=== PATIENT | female | born 1985 | race Caucasian/White ===

== ENCOUNTER 2016-08-02 09:10 | Emergency (ER) | payer OTHER ==
[2016-08-02 09:20] VITALS: O2SAT 97
[2016-08-02] MEDS ORDERED: Sodium Chloride 0.9% 1,000 ML IV ONE (09:50)
[2016-08-02] MEDS ORDERED: Sodium Chloride 0.9% 1,000 ML ONE (10:09)
[2016-08-02 10:24] LABS: BASO % 0.4 % (0.0-2.0); EOS # 0.3 K/uL (0.0-0.7); EOS % 3.6 % (0.0-4.0); HEMATOCRIT 44.1 % (34.0-47.0); LYMPH # 1.5 K/uL (1.0-4.3); LYMPH % 18.6 % (20.0-40.0); MEAN CELL VOLUME 93.3 fL (81.0-99.0); MEAN CORPUSCULAR HEMOGLOBIN 30.8 pg (27.0-31.0); MEAN PLATELET VOLUME 9.2 fL (7.2-11.7); MONO # 0.6 K/uL (0.0-0.8); MONO % 7.8 % (0.0-10.0); RED CELL DISTRIBUTION WIDTH 12.9 % (11.5-14.5); WHITE BLOOD COUNT 7.8 K/uL (4.8-10.8)
[2016-08-02 10:37] LABS: CHLORIDE 104 mmol/L (98-107)
[2016-08-02 10:38] LABS: POTASSIUM 4.2 mmol/L (3.6-5.2); SODIUM 143 mmol/L (132-148)
[2016-08-02 10:40] LABS: ALB/GLOB RATIO 1.3 (1.0-2.1); ALKALINE PHOSPHATASE 42 U/L (38-126); AST/SGOT 31 U/L (14-36); BILIRUBIN,TOTAL < 0.1 mg/dL (0.2-1.3); CARBON DIOXIDE 26 mmol/L (22-30); GFR AFRICAN-AMERICAN > 60; TOTAL PROTEIN 6.7 g/dL (6.3-8.3)
[2016-08-02 10:41] LABS: ALCOHOL SERUM < 10 mg/dl (0-10); ALT/SGPT 30 U/L (9-52); BLOOD UREA NITROGEN 9 mg/dL (7-17); CALCIUM 8.2 mg/dl (8.6-10.4); GLUCOSE,RANDOM 82 mg/dL (65-105)
[2016-08-02 10:46] LABS: RBC URINE 3 /hpf (0-3); URINE BACTERIA RARE (<OCC); URINE BILIRUBIN NEGATIVE (NEGATIVE); URINE BLOOD NEGATIVE (NEGATIVE); URINE COLOR Yellow (YELLOW); URINE GLUCOSE (UA) NORMAL (Normal); URINE KETONE NEGATIVE (NEGATIVE); URINE LEUKOCYTE ESTERASE TRACE Leu/uL (Negative); URINE PROTEIN NEGATIVE (NEGATIVE); URINE UROBILINOGEN NORMAL mg/dL (0.2-1.0); WBC URINE 4 /hpf (0-5)
--- NOTE | 2016-08-02 10:49 | C.PDOC ---
History Of Present Illness The patient, a 31 y/o female whose PMHx includes Anxiety and ADHD, presents to the ED for evaluation an epigastric burning sensation and dry hiving which began around 1 week ago. Patient admits to drinking yesterday, had [place] food and states she woke up this morning with worsening of epigastric abdominal pain and had 2 episodes of vomiting, which consisted of speckles of bright red blood. At presents time, patient is asymptomatic. Pt denies fever, chills, headache, dizziness, sore throat, CP, SOB, dyspnea, diaphoresis, palpitation, diarrhea, melena, hematoschezia, back pain, UTI sx. Ambulate to ED for evaluation, not in nay apparent distress. Time Seen by Provider: 08/02/16 09:20 Chief Complaint (Nursing): GI Problem History Per: Patient History/Exam Limitations: no limitations Onset/Duration Of Symptoms: Days Current Symptoms Are (Timing): Better Location Of Pain/Discomfort: Epigastric Radiation Of Pain To:: None Quality Of Discomfort: "Pain" Associated Symptoms: Vomiting. denies: Fever, Chills, Nausea, Diarrhea, Back Pain Exacerbating Factors: Other (alcohol ) Alleviating Factors: None Last Bowel Movement: Today Recent travel outside of the [place]: No Additional History Per: Patient Abnormal Vaginal Bleeding: No Past Medical History Reviewed: Historical Data, Nursing Documentation, Vital Signs Vital Signs: Last Vital Signs Temp 98.2 F 08/02/16 09:18 Pulse 101 H 08/02/16 09:18 Resp 18 08/02/16 09:18 BP 112/80 08/02/16 09:18 Pulse Ox 97 08/02/16 11:22 - Medical History PMH: Asthma, Depression Denies: Diabetes, Hepatitis, HIV, HTN, Seizures, Sexually Transmitted Disease Surgical History: No Surg Hx - [facility] Procedures TETANUS TOXOID ADMINIST (12/02/14) Family History: States: Unknown Family Hx - Social History Hx Tobacco Use: No Hx Alcohol Use: Yes Hx Substance Use: No - Immunization History Hx Tetanus Toxoid Vaccination: No Hx Influenza Vaccination: No Hx Pneumococcal Vaccination: No Review Of Systems Except As Marked, All Systems Reviewed And Found Negative. Constitutional: Negative for: Fever, Chills Cardiovascular: Negative for: Chest Pain Gastrointestinal: Positive for: Vomiting, Abdominal Pain (epigastric ). Negative for: Nausea, Diarrhea, Constipation Genitourinary: Negative for: Dysuria, Hematuria Musculoskeletal: Negative for: Back Pain Neurological: Negative for: Weakness, Numbness Physical Exam - Physical Exam Appears: Well, Non-toxic, No Acute Distress Skin: Normal Color, Warm, Dry, No Rash Head: Atraumatic, Normacephalic Eye(s): bilateral: Normal Inspection Ear(s): Bilateral: Normal Nose: Normal Oral Mucosa: Moist Throat: Normal, No Erythema, No Exudate, No Drooling Neck: Normal, Normal ROM, Supple Chest: Symmetrical, No Deformity, No Tenderness Cardiovascular: Rhythm Regular, No Murmur Respiratory: Normal Breath Sounds, No Rales, No Rhonchi, No Wheezing Gastrointestinal/Abdominal: Normal Exam, Soft, No Tenderness, No Organomegaly, No Distention, No Guarding, No Rebound Back: Normal Inspection, No CVA Tenderness Extremity: Normal ROM, No Pedal Edema, No Swelling Neurological/Psych: Oriented x3, Normal Speech, Normal Cognition ED Course And Treatment - Laboratory Results Result Diagrams: 08/02/16 10:12 08/02/16 10:12 Lab Interpretation: Normal Urine POC: Negative O2 Sat by Pulse Oximetry: 97 (on RA) Pulse Ox Interpretation: Normal Progress Note: Labs ordered and reviewed. Patient received Pepcid IV, Protonix IV, Zofran IV, and IV Fluids. Pt was OBS in ED for 2.5 hours and reamined stable. Pt reports, asymptomatic, denies any active complaints. Afebrile, hemodynamicaly stable. Non-toxic. Neck: (-) meningeal sign. Lungs: CTA B/L, BS equal B/L. Abd: benign, (-) guarding, (-) rebound, (-) localized tenderness. Back: (-) CVA tenderness. Diagnostics review and appears without acute abnormalities. PO given, pt tolerated well, no vomiting in ED. Results review and discussed with pt. Pt has clinical findings c/w epigastric pain, vomiting, alcohol use. Pt advised. ref. to F/u with PMD, GI on 2-3 days for re -eval. Return to ED if any worsening or new changes. Disposition - Disposition Referrals: [facility] [Outside] Disposition Time: 11:20 Condition: STABLE Additional Instructions: Diet restriction for 1-2 days Take medication as need Follow up with PMD, GI in 2-3 days for re-evaluation. Return to ED if any worsening or new changes. 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 - Scribe Statement The provider has reviewed the documentation as recorded by the Scribe (Paloma Moreno) All medical record entries made by the Scribe were at my direction and personally dictated by me. I have reviewed the chart and agree that the record accurately reflects my personal performance of the history, physical exam, medical decision making, and the department course for this patient. I have also personally directed, reviewed, and agree with the discharge instructions and disposition.
[2016-08-02 12:11] VITALS: BP 100/65; PULSE 75; RESP 17; TEMP 98.3
== END 2016-08-02 12:14 | disposition home or self-care (01) ==
LOC: C.ER 09:10
DX: R10.13 Epigastric pain (principal); R11.10 Vomiting, unspecified
CPT/HCPCS: 80053; 80320; 80324; 80345; 80346; 80349; 80353; 80358; 80361; 81001; 83690; 83992; 84703; 85025; 85610; 85730; 96374; 96375; 99285; C9113; J2405; J7040

== ENCOUNTER 2016-12-26 17:31 | Emergency (ER) | payer SELFPAY ==
[2016-12-26 17:51] VITALS: TEMP 98.3
--- NOTE | 2016-12-26 18:02 | C.PDOC ---
History Of Present Illness 31 yo female come in for evaluation of Right knee pain developed since yesterday after sustained mechanical fall " landed onto my knees".Pt sts, today developed moderate localized pain over back of Right knee mostly with ambulation and knee bending. Otherwise, pt denies head injury, LOC, neck pain, denies deformity, skin changes, swelling, weakness, sensory or vascular deficits to Right leg. Ambulate to Ed for evaluation, not in any apparent distress. Time Seen by Provider: 12/26/16 18:02 Chief Complaint (Nursing): Lower Extremity Problem/Injury History Per: Patient Onset/Duration Of Symptoms: Gradual Past Medical History Reviewed: Historical Data, Nursing Documentation, Vital Signs Vital Signs: Last Vital Signs Temp 98.3 F 12/26/16 17:47 Pulse 99 H 12/26/16 17:47 Resp 16 12/26/16 17:47 BP 108/72 12/26/16 17:47 Pulse Ox 99 12/26/16 18:02 - Medical History PMH: Asthma, Depression Denies: Diabetes, Hepatitis, HIV, HTN, Seizures, Sexually Transmitted Disease Surgical History: No Surg Hx - [facility] Procedures TETANUS TOXOID ADMINIST (12/02/14) Family History: States: No Known Family Hx - Social History Hx Tobacco Use: No Hx Alcohol Use: Yes Hx Substance Use: No - Immunization History Hx Tetanus Toxoid Vaccination: Yes Hx Influenza Vaccination: No Hx Pneumococcal Vaccination: No Review Of Systems Except As Marked, All Systems Reviewed And Found Negative. Eyes: Negative for: Vision Change ENT: Negative for: Ear Discharge, Nose Discharge Cardiovascular: Negative for: Chest Pain Gastrointestinal: Negative for: Nausea, Vomiting Genitourinary: Negative for: Incontinence Musculoskeletal: Positive for: Other (Right knee pain) Skin: Negative for: Bruising Neurological: Negative for: Weakness, Numbness, Altered Mental Status, Dizziness Physical Exam - Physical Exam Appears: Well, Non-toxic, No Acute Distress Skin: Normal Color, Warm, No Ecchymosis Head: Atraumatic, Normacephalic Neck: No Midline Cervical Tenderness, No Paracervical Tenderness, No Step Off Deformity, Supple Back: Normal Inspection, No Vertebral Tenderness, No Paraspinal Tenderness Extremity: Normal ROM (Right knee), Tenderness (mild tenderness over posterior aspect Right knee. NO palpable deformity, no ecchymoses, no edema, no erythema.) , No Calf Tenderness, Capillary Refill (less than 2sec to Right foot), No Deformity, No Swelling Neurological/Psych: Oriented x3, Normal Speech, Normal Motor, Normal Sensation, Normal Reflexes ED Course And Treatment O2 Sat by Pulse Oximetry: 99 - Other Rad Right knee X-Ray: Interpreted by Me, Viewed By Me Interpretation: (-) acute fx or dislocation Progress Note: On re-evaluation, pt is afebrile, hemodynamicaly stable. Non- toxic. Ambulatory in ED with stable gait. Right knee: exam c/w knee contusion. FAROM, no neurovascular deficits. Xray (-) acute fx or dislocation. Mike wrap applied to Right knee. Pt advised. ref. to f/u with Ortho in 2-3 days for re-eval. return to ED if any worsening or new changes. Disposition Counseled Patient/Family Regarding: Studies Performed, Diagnosis, Need For Followup, Rx Given - Disposition Referrals: [facility] [Outside] [facility] [place] [Outside] Disposition: HOME/ ROUTINE Disposition Time: 18:20 Condition: STABLE Additional Instructions: RICE-REST,ICE,COMPRESSION, ELEVATION IBUPROFEN FOR PAIN AVOID PROLONG WALKING FOR 1-2 WEEKS FOLLOW UP WITH ORTHOPEDIST IN 2-3 DAYS FOR RE-EVALUATION. RETURN TO eD IF ANY WORSENING OR NEW CHANGES. Prescriptions: Ibuprofen [Motrin Tab] 600 mg PO Q6 #20 tab Instructions: Knee Sprain (ED) Forms: [facility] (Armenian) - Clinical Impression Clinical Impression: Knee contusion
[2016-12-26 19:35] VITALS: BP 112/68; PULSE 90; RESP 20; O2SAT 97
--- NOTE | 2016-12-27 12:14 | RAD ---
PROCEDURE: Right Knee Radiographs. HISTORY: injury COMPARISON: None. FINDINGS: BONES: Normal. No fracture. JOINTS: Normal. No osteoarthritis. JOINT EFFUSION: None. OTHER FINDINGS: None. IMPRESSION: Normal radiographs of the right knee.
== END 2016-12-26 19:00 | disposition home or self-care (01) ==
LOC: C.ER 17:31
DX: S80.01XA Contusion of right knee, initial encounter (principal); W18.30XA Fall on same level, unspecified, initial encounter

== ENCOUNTER 2017-01-26 17:53 | Emergency (ER) | payer OTHER ==
[2017-01-26] MEDS ORDERED: Albuterol-Ipratrop 3 mg / 0.5 (3 ml) UD ONE ×3 (18:19→19:37)
[2017-01-26 18:20] VITALS: TEMP 98.4
[2017-01-26] MEDS ORDERED: Albuterol-Ipratrop 3 mg / 0.5 (3 ml) UD INH STA ×2 (19:27→20:07)
--- NOTE | 2017-01-26 19:40 | C.PDOC ---
History Of Present Illness 31 year old female known asthma patient presents to the ER with asthma exacerbation that began today. Patient reports she has been using her inhaler with no relief. Patient states when she developed the exacerbation she began to cough. Patient has no Hx of intubation; denies smoking, tobacco use, or fever. Time Seen by Provider: 01/26/17 19:17 Chief Complaint (Nursing): Shortness Of Breath History Per: Patient History/Exam Limitations: no limitations Onset/Duration Of Symptoms: Hrs Current Symptoms Are (Timing): Still Present Initiating Event: Other (Not known) Current Respiratory Medications: Other ("Inhaler") Associated Symptoms: Other (Cough, SOB). denies: Fever, Chest Pain Recent travel outside of the [place]: No Past Medical History Reviewed: Historical Data, Nursing Documentation, Vital Signs Vital Signs: Last Vital Signs Temp 98.4 F 01/26/17 18:14 Pulse 91 H 01/26/17 18:14 Resp 20 01/26/17 18:58 BP 110/71 01/26/17 18:14 Pulse Ox 98 01/26/17 21:04 - Medical History PMH: Asthma, Depression Surgical History: No Surg Hx - [facility] Procedures TETANUS TOXOID ADMINIST (12/02/14) Family History: States: Unknown Family Hx - Social History Hx Tobacco Use: No Hx Alcohol Use: Yes Hx Substance Use: No - Immunization History Hx Tetanus Toxoid Vaccination: Yes Hx Influenza Vaccination: No Hx Pneumococcal Vaccination: No Review Of Systems Except As Marked, All Systems Reviewed And Found Negative. Constitutional: Negative for: Fever Cardiovascular: Negative for: Chest Pain, Palpitations Respiratory: Positive for: Cough, Shortness of Breath Gastrointestinal: Negative for: Nausea, Vomiting Physical Exam - Physical Exam Appears: Non-toxic Skin: Normal Color, Warm, Dry Head: Atraumatic, Normacephalic Oral Mucosa: Moist Chest: Symmetrical Cardiovascular: Rhythm Regular Respiratory: No Rales, No Rhonchi, Wheezing (Expiratory) Gastrointestinal/Abdominal: Soft, No Tenderness Neurological/Psych: Oriented x3, Normal Speech, Normal Cognition ED Course And Treatment O2 Sat by Pulse Oximetry: 98 (Room air) Pulse Ox Interpretation: Normal Medical Decision Making Medical Decision Making: Impression: Asthma Plan: Prednisone, Nebulizer On reevaluation, patient states she feels better; peak flow is at 320. Will discharge home with Rx for prednisone. Disposition Counseled Patient/Family Regarding: Diagnosis, Need For Followup, Rx Given - Disposition Disposition: HOME/ ROUTINE Disposition Time: 21:01 Condition: IMPROVED Additional Instructions: follow up with your doctor in 2 days call to make an appointment take medications as prescribed return to hospital if symptoms worsens or progress Prescriptions: predniSONE [predniSONE Tab] 50 mg PO DAILY #4 tab Instructions: Asthma (ED), Asthma (GEN) Forms: [facility] (Congolese), General Discharge Instructions - Clinical Impression Clinical Impression: Asthma - Scribe Statement The provider has reviewed the documentation as recorded by the Scribella Chau All medical record entries made by the Roblesibella were at my direction and personally dictated by me. I have reviewed the chart and agree that the record accurately reflects my personal performance of the history, physical exam, medical decision making, and the department course for this patient. I have also personally directed, reviewed, and agree with the discharge instructions and disposition.
[2017-01-26 21:15] VITALS: BP 129/81; PULSE 78; RESP 16
[2017-01-27 00:27] VITALS: O2SAT 98
== END 2017-01-26 21:14 | disposition home or self-care (01) ==
LOC: C.ER 17:53
DX: J45.909 Unspecified asthma, uncomplicated (principal)

== ENCOUNTER 2018-03-18 20:56 | Emergency (ER) | payer OTHER ==
[2018-03-18 21:07] VITALS: BP 125/81; PULSE 75; TEMP 98; O2SAT 100
[2018-03-18 21:40] LABS: HCG,QUALITATIVE URINE NEGATIVE (NEGATIVE)
[2018-03-18 21:44] LABS: SQUAMOUS EPITHIAL 2 /hpf (0-5); URINE BILIRUBIN NEGATIVE (NEGATIVE); URINE BLOOD 1+ (NEGATIVE); URINE CLARITY Clear (Clear); URINE COLOR Yellow (YELLOW); URINE GLUCOSE (UA) NORMAL (Normal); URINE LEUKOCYTE ESTERASE NEG Leu/uL (Negative); URINE PROTEIN NEGATIVE (NEGATIVE)
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
[2018-03-18] MEDS ORDERED: Emtricitabine-Tenofovir 200 mg-300 mg Tab PO NR (22:15)
[2018-03-18 22:21] VITALS: RESP 20
== END 2018-03-18 22:20 | disposition home or self-care (01) ==
LOC: C.ER 20:56
DX: Z04.89 Encounter for examination and observation for other specified reasons (principal)